=== PATIENT | female | born 2000 | race Two or more races ===

== ENCOUNTER 2020-09-10 20:18 | Emergency (ER) | payer BC ==
[~2020-09-10] VITALS: Ht 162.6 cm; Wt 66.6 kg
[2020-09-10] MEDS ORDERED: PROZ20CA11 PO (20:28)
[2020-09-10] MEDS ORDERED: ONDA-83 PO (20:28)
[2020-09-10] MEDS ORDERED: PROBCAP14 PO (20:28)
[2020-09-10] MEDS ORDERED: OMEG12003 PO (20:28)
[2020-09-10] MEDS ORDERED: NS 1,000 ML IV ONE (20:45)
[2020-09-10] MEDS ORDERED: ONDANSETRON 4MG/2ML VIAL IV ONE (20:45)
[2020-09-10 21:12] LABS: BASO % 0.1 % (0.0-1.0); HEMATOCRIT 44.1 % (36.0-47.0); HEMOGLOBIN 14.5 g/dl (12.0-15.5); LYMPH # 0.6 10^3/uL (1.5-5.0); LYMPH % 8.1 % (24.0-44.0); MEAN CORPUSCULAR HEMOGLOBIN 29.5 pg (27.0-33.0); MEAN CORPUSCULAR HGB CONC 32.9 g/dl (32.0-36.5); MEAN CORPUSCULAR VOLUME 89.8 fl (80.0-96.0); MONO # 0.4 10^3/uL (0.0-0.8); MONO % 5.7 % (2.0-8.0); NEUTROPHILS # 6.6 10^3/uL (1.5-8.5); NEUTROPHILS % 85.7 % (36.0-66.0); PLATELET COUNT, AUTOMATED 299 10^3/uL (150-450); RED BLOOD COUNT 4.91 10^6/uL (4.00-5.40); WHITE BLOOD COUNT 7.7 10^3/uL (4.0-10.0)
[2020-09-10 21:28] LABS: HCG, SERUM QUALITATIVE NEGATIVE (NEGATIVE)
[2020-09-10 21:36] LABS: ALBUMIN 4.6 GM/DL (3.2-5.2); ALT/SGPT 29 U/L (12-78); BILIRUBIN,DIRECT 0.4 MG/DL (0.0-0.2); BILIRUBIN,TOTAL 1.1 MG/DL (0.2-1.0); BLOOD UREA NITROGEN 11 MG/DL (7-18); CALCIUM LEVEL 9.5 MG/DL (8.5-10.1); CARBON DIOXIDE LEVEL 28 MEQ/L (21-32); CHLORIDE LEVEL 103 MEQ/L (98-107); CREATININE FOR GFR 1.02 MG/DL (0.55-1.30); GLOMERULAR FILTRATION RATE > 60.0 (>60); GLUCOSE, FASTING 100 MG/DL (70-100); LIPASE 48 U/L (73-393); POTASSIUM SERUM 3.6 MEQ/L (3.5-5.1); SODIUM LEVEL 142 MEQ/L (136-145); TOTAL PROTEIN 8.7 GM/DL (6.4-8.2)
[2020-09-10] MEDS ORDERED: KETOROLAC 30 MG/ML 1ML VIAL IV ONE (22:00)
--- NOTE | 2020-09-10 22:03 | REPVR ---
PROCEDURE INFORMATION: Exam: XR Abdomen, 1 View Exam date and time: 09/10/2020 8:38 PM Age: 20 years old Clinical indication: Abdominal pain; Additional info: Abdominal pain left TECHNIQUE: Imaging protocol: XR of the abdomen. Views: Frontal supine view of the abdomen. 1 View. COMPARISON: No relevant prior studies available. FINDINGS: Gastrointestinal tract: Minimal gas in the GI tract to the level of the rectum without abnormal dilatation. Bones/joints: Unremarkable. Other findings: No pathologic calcifications are noted. IMPRESSION: Negative abdomen with minimal gas which is within normal limits. Electronically signed by: Jb Roth On 09/10/2020 22:03:24 PM
[2020-09-10 23:26] LABS: AMPHETAMINES LEVEL URINE NEGATIVE (NEGATIVE); BARBITURATES URINE NEGATIVE (NEGATIVE); BENZODIAZEPINES URINE NEGATIVE (NEGATIVE); CANNABINOIDS URINE POSITIVE (NEGATIVE); COCAINE METABOLITE URINE NEGATIVE (NEGATIVE); METHADONE URINE NEGATIVE (NEGATIVE); OPIATES URINE NEGATIVE (NEGATIVE); PHENCYCLIDINE URINE NEGATIVE (NEGATIVE)
[2020-09-10] MEDS ORDERED: ONDA4TAB6 PO (23:38)
[2020-09-10 23:48] VITALS: BP 111/69
== END 2020-09-11 | disposition home or self-care (01) ==
LOC: M ED 20:18
DX: R11.2 Nausea with vomiting, unspecified (principal); R10.9 Unspecified abdominal pain; R42 Dizziness and giddiness; Z87.42 Personal history of other diseases of the female genital tract; Z87.19 Personal history of other diseases of the digestive system; Z88.8 Allergy status to other drugs, medicaments and biological substances; Z79.899 Other long term (current) drug therapy
CPT/HCPCS: 74018; 80048; 80076; 80307; 81001; 83690; 84703; 85025; 96361; 96374; 96375; 99284; J1885; J2405